=== PATIENT | male | born 1965 | race Caucasian/White ===

== ENCOUNTER 2017-12-01 16:12 | Emergency (ER) | payer OTHER ==
--- NOTE | 2017-12-01 16:18 | EDPHY ---
HPI/HX/ROS/PE/MDM Narrative: CHIEF COMPLAINT: Heartburn HPI: This patient is a 52 year old male complaining of persistent heartburn and urinary frequency. He has had heartburn for several years which he generally treats with Tums and Famotidine. Over the last several weeks, he has noted more frequent symptoms and his discomfort wakes him at night. This presents at midsternal chest discomfort, unchanged from his usual heartburn sensation. He experiences heartburn throughout the day, but finds it is worse when he is lying down and at night. He did have a cardiac workup in the past for similar symptoms including echo and stress tests, which were negative. He has not had any endoscopies or other GI workup in the past. The patient is very active and runs marathons but he has not run recently, and his family member at bedside states he has been complaining of being fatigued and nauseous for the last several days. He called for an appointment with a new primary care physician today, and the phone nurse recommended he present to the emergency department for further evaluation. He denies chest pain at any point with exercise. The patient has also noted urinary frequency lately which wakes him at night. He continues to have a sensation of urinary urgency after urination. He has not had similar symptoms in the past. He denies dysuria. No fever, vomiting, diarrhea, pain or swelling in his legs, recent illness, or other associated symptoms. He saw a urologist a few years ago and reports having a normal PSA. REVIEW OF SYSTEMS: Aside from elements discussed in the HPI, a comprehensive 10-point review of systems was reviewed and is negative. PMH: Chronic back pain (Suboxone, followed at [facility]). Takes testosterone weekly. SOCIAL HISTORY: Lives in [place]. . 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 PHYSICAL EXAM: General:Patient is alert, in no acute distress. ENT:Eyes are normal to inspection. ENT inspection normal. Neck: Normal inspection. Full range of motion. Respiratory:No respiratory distress. Breath sounds normal bilaterally. Cardiovascular: Regular rate and rhythm. Strong peripheral pulses. Normal cap refill. Abdomen:The abdomen is nontender to palpation. There are no peritoneal signs. There are normal bowel sounds. Back: Normal to inspection. No tenderness to palpation. Skin: Normal color. No rash. Warm and dry. Extremities: Normal appearance. Full range of motion. Neuro: Oriented x3. Normal motor function. Normal sensory function. ED Course: 52 y/o male presents with several weeks of worsening heartburn as well as urinary frequency. Physical exam is unremarkable. Plan for EKG. IV established. Plan for chest x-ray, labs including CBC, BMP, troponin, liver, lipase. Plan to administer 1L IV NS. EKG was ordered and interpreted by myself. Please see MDconnectME system for official reading. Sinus rhythm, rate 81. No prior EKGs available for review. The patient's chest x-ray is negative for acute processes. Laboratory studies reviewed. Troponin negative. Labs otherwise unremarkable including liver/lipase, blood glucose. 17:25 Reassessed patient. Discussed results. Plan to discharge home in good condition with referral to gastroenterology for further evaluation. He will try Prilosec OTC for relief. Return precautions discussed. He is comfortable with this plan. MDM: This patient presents with symptoms that are consistent with heartburn/GERD that have been present constantly for at least several weeks. Likelihood of GERD made likely by partial relief with antacids and worsening at night and with supine positioning. I considered possible ACS, but patient's ECG does not show significant ST elevation, and troponin after several days of constant discomfort is normal. His HEART score is quite low. I also considered TAD, but patient's description of pain is not consistent with this, particularly given positional nature, as well as lack of significant hypertension, family history or stigmata of this disease on CXR. There is no pleuritic component to suggest PE, nor does the patient have risk factors for this disease or evidence of DVT. I offered further workup to include possible CT and/or observation in the hospital, but patient feels comfortable with plan for outpatient workup. I think he would benefit from a consistent trial of a PPI, followed by GI consultation and likely EGD. There is no current evidence of pancreatitis, and no abdominal tenderness or association with eating to suggest cholecystitis. The patient also complains of urinary frequency, which appears likely unrelated to his chest symptoms. His UA is negative for signs of UTI, and workup is negative for DM. His symptoms sound most consistent with BPH or other prostate issue, so I have referred him to PCP and urology. We discussed strict return precautions - patient understands that etiology of his symptoms has not been definitively determined and that he should undergo further testing as soon as possible. - Data Points Imaging Results: Imaging Impressions Chest X-Ray 12/01/17 16:30 Impression: Clear lungs. No acute process. Imaging: I viewed and interpreted images myself Laboratory Results: Laboratory Results 12/01/17 16:25 12/01/17 16:25 12/01/17 12/01/17 12/01/17 17:53 16:25 16:25 WBC 6.64 10^3/uL 10^3/uL (3.80-9.50) RBC 5.27 10^6/uL 10^6/uL (4.40-6.38) Hgb 17.2 g/dL g/dL (13.7-17.5) Hct 48.1 % % (40.0-51.0) MCV 91.3 fL fL (81.5-99.8) MCH 32.6 pg pg (27.9-34.1) MCHC 35.8 g/dL g/dL (32.4-36.7) RDW 11.9 % % (11.5-15.2) Plt Count 274 10^3/uL 10^3/uL (150-400) MPV 8.9 fL fL (8.7-11.7) Neut % (Auto) 58.4 % % (39.3-74.2) Lymph % (Auto) 31.5 % % (15.0-45.0) [place] % (Auto) 6.6 % % (4.5-13.0) Eos % (Auto) 2.6 % % (0.6-7.6) Baso % (Auto) 0.6 % % (0.3-1.7) Nucleat RBC Rel Count 0.0 % % (0.0-0.2) Absolute Neuts (auto) 3.88 10^3/uL 10^3/uL (1.70-6.50) Absolute Lymphs (auto) 2.09 10^3/uL 10^3/uL (1.00-3.00) Absolute Monos (auto) 0.44 10^3/uL 10^3/uL (0.30-0.80) Absolute Eos (auto) 0.17 10^3/uL 10^3/uL (0.03-0.40) Absolute Basos (auto) 0.04 10^3/uL 10^3/uL (0.02-0.10) Absolute Nucleated RBC 0.00 10^3/uL 10^3/uL (0-0.01) Immature Gran % 0.3 % % (0.0-1.1) Immature Gran # 0.02 10^3/uL 10^3/uL (0.00-0.10) Sodium 143 mEq/L mEq/L (135-145) Potassium 4.4 mEq/L mEq/L (3.5-5.2) Chloride 106 mEq/L mEq/L (97-110) Carbon Dioxide 22 mEq/l mEq/l (22-31) Anion Gap 15 mEq/L mEq/L (8-16) BUN 12 mg/dL mg/dL (7-23) Creatinine 1.2 mg/dL mg/dL (0.7-1.3) Estimated GFR > 60 Glucose 106 mg/dL H mg/dL (70-100) Calcium 9.0 mg/dL mg/dL (8.5-10.4) Total Bilirubin 0.3 mg/dL mg/dL (0.1-1.4) Conjugated Bilirubin 0.2 mg/dL mg/dL (0.0-0.5) Unconjugated Bilirubin 0.1 mg/dL mg/dL (0.0-1.1) AST 34 IU/L IU/L (17-59) ALT 46 IU/L IU/L (21-72) Alkaline Phosphatase 49 IU/L IU/L (38-126) Troponin I < 0.012 ng/mL ng/mL (0.000-0.034) Total Protein 7.2 g/dL g/dL (6.3-8.2) Albumin 4.4 g/dL g/dL (3.5-5.0) Lipase 90 IU/L IU/L (23-300) Urine Color YELLOW Urine Appearance CLEAR Urine pH 6.0 (5.0-7.5) Ur Specific [place] 1.017 (1.002-1.030) Urine Protein NEGATIVE (NEGATIVE) Urine Ketones NEGATIVE (NEGATIVE) Urine Blood NEGATIVE (NEGATIVE) Urine Nitrate NEGATIVE (NEGATIVE) Urine Bilirubin NEGATIVE (NEGATIVE) Urine Urobilinogen 4.0 EU H EU (0.2-1.0) Ur Leukocyte Esterase NEGATIVE (NEGATIVE) Urine Glucose NEGATIVE (NEGATIVE) Medications Given: Discontinued Medications Al Hydroxide/Mg Hydroxide (Maalox Susp) 30 ml PO ONCE ONE Stop: 12/01/17 17:32 Last Admin: 12/01/17 17:38 Dose: 30 ml Hyoscyamine Sulfate (Levsin, Hyomax-Sl) 0.25 mg PO ONCE ONE Stop: 12/01/17 17:32 Last Admin: 12/01/17 17:37 Dose: 0.25 mg Sodium Chloride (Ns) 1,000 mls @ 0 mls/hr IV EDNOW ONE; Wide Open PRN Reason: Protocol Stop: 12/01/17 16:31 Last Admin: 12/01/17 17:07 Dose: 1,000 mls Lidocaine (Lidocaine 2% Viscous) 15 ml PO ONCE ONE Stop: 12/01/17 17:32 Last Admin: 12/01/17 17:38 Dose: 15 ml General Time Seen by Provider: 12/01/17 16:17 Initial Vital Signs: Initial Vital Signs Temperature (C) 37 C 12/01/17 16:13 Heart Rate 76 12/01/17 16:13 Respiratory Rate 17 12/01/17 16:13 Blood Pressure 103/88 H 12/01/17 16:13 O2 Sat (%) 98 12/01/17 16:13 O2 Delivery Mode Room Air Allergies/Adverse Reactions: No Known Allergies Allergy (Unverified 12/01/17 16:12) Home Medications: Medication Instructions Recorded Suboxone 12 mg-3 mg Sl Film 12/01/17 TESTOSTERONE 12/01/17 buPROPion 12/01/17 Departure - Departure Disposition: Home, Routine, Self-Care Clinical Impression: GERD (gastroesophageal reflux disease) Condition: Good Instructions: Gastroesophageal Reflux Disease (DC) Additional Instructions: 1. Follow up with your new primary care physician for further evaluation. 2. Follow up with gastroenterology for further evaluation. We have referred you to our GI specialist health communications specialist. 3. Return to the emergency department for fever, chest pain, shortness of breath , fainting, or other worsening of condition. 4. Take PRILOSEC OTC every day as directed for at least 10 days. Referrals: Rex Rice MD [[facility] [place] - As per Instructions Bradley Ricks MD [Medical Doctor] - As per Instructions Phuong Manley MD [Medical Doctor] - As per Instructions Report Scribed for: Gurwinder Mcdonald Report Scribed by: Jessica Lopez Date of Report: 12/01/17 Time of Report: 16:18 Physician Review and Approval Statement: Portions of this note were transcribed by an ED scribe. I personally performed the history, physical exam, and medical decision making; and confirm the accuracy of the information in the transcribed note.
--- NOTE | 2017-12-01 16:23 | CPEKG ---
Heart Rate: 81 RR Interval: 741 P-R Interval: 144 QRSD Interval: 80 QT Interval: 348 QTC Interval: 404 P [place]: 53 QRS [place]: 65 T Wave [place]: 30 EKG Severity - ABNORMAL ECG - EKG Impression: SINUS RHYTHM EKG Impression: PROBABLE LEFT ATRIAL ABNORMALITY EKG Impression: LEFT VENTRICULAR HYPERTROPHY Electronically Signed By: Nolberto Sullivan 02-Dec-2017 12:39:22
[2017-12-01] MEDS ORDERED: NS 1,000 ML IV ONE (16:30)
[2017-12-01 16:40] LABS: PLATELET COUNT 274 10^3/uL (150-400)
[2017-12-01 17:12] VITALS: RESP 16
[2017-12-01] MEDS ORDERED: HYOSCYAMINE SULFATE 0.125 MG TAB PO ONE (17:31)
[2017-12-01] MEDS ORDERED: LIDOCAINE 2% VISCOUS 15 ML UDCUP PO ONE (17:31)
[2017-12-01] MEDS ORDERED: MAG HYDROX/AL HYDROX/SIMETH 30 ML UDCUP PO ONE (17:31)
[2017-12-01 18:32] VITALS: BP 117/89; PULSE 57; TEMP 96.8; O2SAT 95
== END 2017-12-01 18:40 | disposition home or self-care (01) ==
DX: K21.9 Gastro-esophageal reflux disease without esophagitis (principal); E86.9 Volume depletion, unspecified